=== PATIENT | male | born 1960 | race Caucasian/White ===

== ENCOUNTER 2019-03-09 09:08 | Inpatient (IN) | payer BC ==
[2019-03-09] VITALS (8 sets, daily range): BP systolic 136–156
[~2019-03-09] VITALS: Ht 167.6 cm; Wt 102.1 kg
--- NOTE | 2019-03-09 09:10 | NUR ---
Patient triaged and placed in waiting room. VSS and patient appears in no acute distress at this time. Accompanied by FAMILY, awaiting available bed, and MD notified of need for MSE.
--- NOTE | 2019-03-09 09:49 | NUR ---
BROUGHT BACK TO BED #7 AND REPORT GIVEN TO FELICIA
--- NOTE | 2019-03-09 09:55 | NUR ---
Patient arrived via POV, AAOx4, and ambulatory with steady gait. Accompanied by family. Patient c/c of left chest tightness radiating to left shoulder and left neck. Patient states no nausea, vomiting, or diarrhea. Patient states more pain with inspiration. Patient states he became more anxious when the chest pain did not subside with rest. Patient calm and cooperative. Will continue to follow up and monitor.
--- NOTE | 2019-03-09 10:06 | NUR ---
DR MARQUEZ AT BEDSIDE FOR EVALUATION
[2019-03-09] MEDS ORDERED: ATORVASTATIN 20 MG TABLET PO ONE (10:15)
[2019-03-09] MEDS ORDERED: ASPIRIN 325 MG TABLET PO ONE (10:15)
[2019-03-09 10:37] LABS: BASOPHILS # (AUTO) 0.1 K/uL (0.0-0.2); BASOPHILS % (AUTO) 0.6 % (0.0-2.0); EOSINOPHILS # (AUTO) 0.2 K/uL (0.0-0.4); EOSINOPHILS % (AUTO) 1.5 % (0.0-4.0); HEMATOCRIT 45.7 % (36-54); HEMOGLOBIN 15.1 g/dL (14.0-18.0); LYMPHOCYTES # (AUTO) 2.1 K/uL (1.0-5.5); LYMPHOCYTES % (AUTO) 18.1 % (20.5-51.5); MEAN CORPUSCULAR HEMOGLOBIN 30 pg (27-31); MEAN CORPUSCULAR HGB CONC 33 % (32-36); MEAN CORPUSCULAR VOLUME 90 fL (79.0-98.0); MONOCYTES # (AUTO) 0.9 K/uL (0.0-1.0); MONOCYTES % (AUTO) 7.9 % (1.7-9.3); NEUTROPHILS # (AUTO) 8.3 K/uL (1.8-7.7); NEUTROPHILS % (AUTO) 71.9 % (40.0-70.0); PLATELET COUNT (AUTO) 254 K/uL (130-430); RED CELL DISTRIBUTION WIDTH 13.6 % (9.0-15.0); WHITE BLOOD COUNT (AUTO) 11.5 K/uL (4.8-10.8)
[2019-03-09 10:44] LABS: CALCIUM 8.6 mg/dL (8.4-11.0); CREATININE 0.83 mg/dL (0.55-1.30); POTASSIUM 4.2 mmol/L (3.5-5.1)
[2019-03-09 10:50] LABS: ALBUMIN 3.5 g/dL (3.4-4.8); PROTHROMBIN TIME 9.8 SECS (9.5-12.5); TOTAL BILIRUBIN 0.4 mg/dL (0.0-1.0)
[2019-03-09] MEDS ORDERED: NITROGLYCERIN 1 INCH (GM) OINT. ONE (10:53)
[2019-03-09] MEDS ORDERED: MORPHINE 4 MG/ML INJ. SYRINGE ONE (10:54)
[2019-03-09] MEDS ORDERED: NITROGLYCERIN 0.4 MG TAB.SUBL SL PRN (12:30)
--- NOTE | 2019-03-09 12:56 | NUR ---
Patient will be admitted to [facility]. Admitted to Telemetry unit. Will go to room 118B. Complete and up to date summary report printed. SBAR report to be given at bedside with opportunity for questions.
--- NOTE | 2019-03-09 13:15 | NUR ---
CONSULTATION PAGED/CALLED Reason for Consultation: CHEST PAIN Person Who was Notified: GURPREET Consulting Physician: DR. 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
--- NOTE | 2019-03-09 13:30 | NUR ---
ADMIT NOTE Received pt from ER to the floor with a diagnosis of chest pain. Admission process initiated. patient oriented to pain management, safety and call light-teach back done.
--- NOTE | 2019-03-09 13:40 | NUR ---
Received patient from ER via [facility] and received report. Patient tolerated transfer well. Patient tolerating on room air, denies any pain. In no acute distress. VS stable.
--- NOTE | 2019-03-09 15:40 | NUR ---
Patient awake, alert, oriented, and watching TV in bed with side rails x 3 up, call light with in reach. Breathing even and unlabored. In no acute distress, denies pain.
--- NOTE | 2019-03-09 18:57 | NUR ---
Offered patient the influenza vaccination, patient stated change mind. Educated pros and cons of receiving the influenza vaccinations patient refused x 3.
--- NOTE | 2019-03-09 19:30 | NUR ---
OPENING NOTES Patient is resting, no signs of acute respiratory distress, occasional dry coughs. IV site not patent, dressing c/d/i, will restart IV. Call light within reach, bed at lowest position. Bed alarm refused after patient education of importance of bed alarm, patient verbalizes understanding. Will continue to monitor.
[2019-03-09] MEDS ORDERED: FLU VACC QS2019-20 36MOS UP/PF 60 MCG/0.5 ML SYRINGE I.M. ONE (19:35)
[2019-03-09] MEDS ORDERED: ENOXAPARIN SODIUM 40 MG/0.4 ML SYRINGE SUBCUT SCH (21:00)
[2019-03-09] MEDS: METOPROLOL TARTRATE 25 MG TABLET PO SCH (21:02)
--- NOTE | 2019-03-09 21:45 | NUR ---
IV RE-INSERTION: Complaining of pain to IV site. Restarted on Right forearm 22g. Successful after 3 attempts.Will observe for any signs of infiltration. Patient is resting, normal vitals after medications provided. Will continue to monitor.
[2019-03-09] MEDS ORDERED: MORPHINE 4 MG/ML INJ. SYRINGE IVP ONE (23:30)
[2019-03-09] MEDS ORDERED: NITROGLYCERIN 1 INCH (GM) OINT. TP ONE (23:30)
[2019-03-10] VITALS: BP_SYST 144
--- NOTE | 2019-03-10 00:10 | NUR ---
Patient is resting, no signs of acute respiratory distress observed. Will continue to monitor.
--- NOTE | 2019-03-10 02:20 | NUR ---
Provided patient with pillow. Patient has no pain at this time. will continue to monitor.
--- NOTE | 2019-03-10 04:35 | NUR ---
Patient is asleep, rise and fall of chest observed. Will continue to monitor.
--- NOTE | 2019-03-10 06:28 | NUR ---
CLOSING NOTES Patient is resting, eyes closed, no signs of acute respiratory distress or pain at this time. IV site patent, dressings c/d/i, saline lock. Call light within reach, bed at lowest position. Bed alarm refused after patient education of importance of bed alarm, patient verbalizes understanding. All needs met throughout shift. Will endorse care to oncoming shift.
[2019-03-10 07:56] LABS: CHOLESTEROL 204 mg/dL (<200); HDL CHOLESTEROL 51 mg/dL (>45); LDL CHOLESTEROL 122 mg/dL (<100); TRIGLYCERIDES 137 mg/dL (30-150)
[2019-03-10 08:00] VITALS: BP_SYST 138
--- NOTE | 2019-03-10 08:00 | NUR ---
Patient A/Ox4, ambulatory, on room air. Instructed on POC. Call light is in place, bed locked at the lowest position. Will continue to monitor.
[2019-03-10] MEDS ORDERED: ATORVASTATIN 20 MG TABLET PO SCH (09:00)
[2019-03-10] MEDS ORDERED: ASPIRIN 81 MG TAB.CHEW PO SCH (09:00)
[2019-03-10] MEDS: METOPROLOL TARTRATE 25 MG TABLET PO SCH (09:17)
--- NOTE | 2019-03-10 10:28 | NUR ---
Dr. Vance is at bedside to see patient.
--- NOTE | 2019-03-10 12:41 | NUR ---
Patient has returned from stress test. No signs of distress noted. Patient refuses to have his tele box put on him, and states his desire of going home. Charge nurse is notified.
--- NOTE | 2019-03-10 13:36 | NUR ---
DR. HOOKER IS CALLED ABOUT PATIENT'S STRESS TEST'S RESULT. DR. HOOKER STATES THE TEST IS NEGATIVE, AND PATIENT IS CAN BE DISCHARGED IN CARDIAC STANDPOINT.
--- NOTE | 2019-03-10 14:00 | NUR ---
DR. DUTTON IS CALLED ABOUT THE STRESS TEST RESULTS. HE STATES THAT HE WILL SEE THE PATIENT LATER ON DURING THE DAY.
[2019-03-10] MEDS ORDERED: ASPI-1155 PO (16:42)
[2019-03-10] MEDS ORDERED: METO25TA6 PO (16:43)
[2019-03-10 16:44] VITALS: BP_SYST 134
--- NOTE | 2019-03-10 17:30 | NUR ---
D/C Patient Patient given medication reconciliation form and D/C instructions. Exit Care provided. Patient verbalized understanding. MD discussed with patient the results and treatment provided. Ambulatory with steady gait for discharge to home. Patient in stable condition, ID band removed. IV catheter removed, intact and dressing applied, no active bleeding. Rx of aspirin and metoprolol is given. Patient educated on pain management. All belongings sent with patient.
== END 2019-03-10 17:10 | disposition home or self-care (01) | DRG 206 ==
LOC: SED 09:08 → STU 12:24
PROVIDERS: ADMIT Family Medicine; ATTEND Family Medicine
DX: M94.0 Chondrocostal junction syndrome [Tietze] (principal); E66.9 Obesity, unspecified; E78.5 Hyperlipidemia, unspecified; F17.210 Nicotine dependence, cigarettes, uncomplicated; I10 Essential (primary) hypertension; J44.9 Chronic obstructive pulmonary disease, unspecified; Z82.49 Family history of ischemic heart disease and other diseases of the circulatory system; Z85.828 Personal history of other malignant neoplasm of skin; Z68.36 Body mass index [BMI] 36.0-36.9, adult; Z79.899 Other long term (current) drug therapy
CPT/HCPCS: 36415; 71045; 80053; 80061; 83880; 84484; 85025; 85379; 85610-TC; 85730-TC; 93005; 93017; 93306; 96374; 99291; G0378; J1650; J2270